=== PATIENT | male | born 1950 | race Caucasian/White ===

== ENCOUNTER → 2020-10-02 | Outpatient (CLI) | payer MEDICARE ==
[~2020-10-02] MED LIST: ASPI81EC PO; Allopurinol100 MG PO; BENAML10/5 PO; CRUTCH USE; FISH1000; Flomax0.4 MG PO; LOSHYD100 PO; Lipitor20 MG PO; OXYACE5T PO; UBID10; Vitamin C100 M1
== END | disposition home or self-care (01) ==
LOC: LAB EV 16:55 → LAB SHORT 16:55
DX: R07.9 Chest pain, unspecified (principal)
CPT/HCPCS: 84484